=== PATIENT | male | born 1970 | race Caucasian/White ===

== ENCOUNTER 2017-02-09 12:50 | Emergency (ER) | payer MEDICAID ==
--- OUTSIDE RECORDS SUMMARY | 2017-02-09 13:09 | XMS REPORT | Clinical Summary ---
:1970 Author Organization [facility] [place] [address] Care Team Providers Name Role Phone Unavailable Primary Care Provider Unavailable Source Comments This disclosure is being made pursuant to the [employer] program and maynot contain all information available regarding this patient.[facility] Allergies No Known Allergies Current Medications Be aware that medications may not be up to date as of this document. Alwaysverify current medications with the patient. Prescription Sig. Disp. Refills Start Date End Date Status levothyroxine Take 175 mcg by Active (SYNTHROID, LEVOTHROID) mouth every 175 MCG tablet morning on an empty stomach. lisinopril Take 20 mg by Active (PRINIVIL,ZESTRIL) 20 mouth daily. MG tablet benztropine (COGENTIN) Take 1 tablet by 30 tablet 1 01/29/2017 Active 1 MG tablet mouth daily. divalproex ER (DEPAKOTE Take 2 tablets 60 tablet 1 01/29/2017 Active EXTENDED RELEASE) 500 by mouth MG 24 hr tablet nightly. lurasidone HCl (LATUDA) Take 1 tablet by 30 tablet 0 01/29/2017 Active 40 MG TABS tablet mouth daily with breakfast. traZODone (DESYREL) 100 Take 1 tablet by 30 tablet 1 01/29/2017 Active MG tablet mouth nightly. hydrOXYzine pamoate Take 1 capsule 90 capsule 1 01/29/2017 Active (VISTARIL) 50 MG by mouth 3 capsuleIndications:Anxi (three) times ety daily. Indications: Feeling Anxious Active Problems Problem Noted Date Bipolar I disorder, most recent episode depressed, severe without 01/29/2017 psychotic features (HCC) Polysubstance abuse 01/29/2017 Essential hypertension 01/25/2017 Hypothyroidism 01/25/2017 Alcohol-induced insomnia (HCC) 01/25/2017 Recurrent major depressive disorder (HCC) 01/25/2017 Social History Tobacco Use Types Packs/Day Years Used Date Never Assessed Sex Assigned at Date Recorded Not on file Last Filed Vital Signs Vital Sign Reading Time Taken Blood Pressure 128/82 01/29/2017 9:12 AM CDT Pulse 74 01/29/2017 9:12 AM CDT Temperature 37 C (98.6 F) 01/29/2017 9:12 AM CDT Respiratory Rate 16 01/29/2017 9:12 AM CDT Oxygen Saturation - - Inhaled Oxygen Concentration - - Weight 106.6 kg (235 lb) 01/25/2017 10:48 AM CDT Height 180.3 cm (5' 11") 01/25/2017 10:48 AM CDT Body Mass Index 32.78 01/25/2017 10:48 AM CDT Plan of Treatment Health Maintenance Due Date Last Done Comments Tetanus/Pertussis (1 - Tdap) 1990 INFLUENZA IMMUNIZATION (#1) 2017 Results Valproic acid level, total (01/28/2017 7:01 AM) Component Value Ref Range Valproic Acid Level 34.0(L) 50.0 - 100.0 mcg/mL Specimen Performing Laboratory [facility] CBC and differential (01/27/2017 6:57 AM)Only the most recent of2 resultswithin the time period is included. Component Value Ref Range WBC 6.98 4.80 - 10.80 th/mm3 RBC 5.38 4.70 - 6.10 mill/mm3 Hemoglobin 14.5 14.0 - 18.0 g/dL Hematocrit 44.0 42.0 - 52.0 % MCV 81.8(L) 83.0 - 97.0 fL MCH 27.0 27.0 - 31.0 pg MCHC 33.0 32.3 - 36.5 g/dL Platelets 222 130 - 450 th/mm3 RDW 15.8(H) 11.5 - 15.5 fL NRBC Absolute 0.00 0 th/mm3 MPV 10.4 9.4 - 12.3 fL Differential Type AUTOMATED DIFFERENTIAL Neutrophil % 56.8 43.0 - 65.0 % Neutrophils Absolute Count 3.97 1.5 - 7.5 th/mm3 Lymphocytes % 31.8 20.5 - 45.5 % Lymphocytes Absolute 2.22 1.1 - 3.0 th/mm3 Monocyte % 8.9 0.0 - 12.0 % Monos Absolute 0.62 0.0 - 0.8 th/mm3 Eosinophils Relative % 1.6 0.0 - 5.0 % Eosinophils Absolute Count 0.11 0.0 - 0.5 th/mm3 Basophils % 0.6 0.0 - 1.0 % Basophils Absolute 0.04 0.0 - 0.1 th/mm3 Immature Neutro % 0.3 0.0 - 0.7 % Immature Neutro 0.02 0.0 - 0.1 th/mm3 Specimen Performing Laboratory [facility] Basic metabolic panel (01/27/2017 6:57 AM)Only the most recent of2 resultswithin the time period is included. Component Value Ref Range Sodium 140 136 - 145 mmol/L Potassium 4.2 3.5 - 5.1 mmol/L Chloride 106 98 - 107 mmol/L CO2 26 21 - 32 mmol/L Glucose 84 70 - 100 mg/dL Comment: Reference values apply to fasting specimens only. Non-fasting results >140mg/dL should be evaluated by a physician. Note: New Reference Ranges BUN, Blood 15 7.0 - 22 mg/dL Creatinine, Serum 1.00 0.70 - 1.30 mg/dL Calcium 8.9 8.5 - 10.1 mg/dL Anion Gap 8 mmol/L BUN/Creatinine Ratio 15.0 Osmolality Calculated 279 mosm/Kg EGFR Non-/Georgian >60 >60 Comment: GFR REFERENCE RANGE: >60 mL/min/1.73m2 -- An eGFR of > than, or=to 60, may indicate normal renal function or mildly decreased GFR. EGFR /Georgian >60 >60 Comment: -- An eGFR of > than, or=to 60, may indicate normal renal function or mildly decreased GFR. Specimen Performing Laboratory [facility] TSH with Free T4 Reflex (01/26/2017 6:35 AM) Component Value Ref Range TSH 2.94 0.36 - 3.74 uIU/mL Specimen Performing Laboratory [facility] from Last 3 Months Insurance Payer Benefit Plan / Subscriber ID Type Phone Address Group [facility] [id number] Managed + [address] [facility] MEDICAID [facility] [address] [place] [address] MEDICAID [id number] [facility] [place]ICA[place] [id number] Managed + [address] [place] [id number] [place] [place] [id number] [facility] Self 1970 Home: [address] [phone] [address] [place] [place] [address]
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
[2017-02-09] MEDS ORDERED: KETOROLAC TROMETHAMINE 60 MG/2 ML VIAL IM ONE (13:14)
[2017-02-09 13:16] LABS: Hematocrit 39.7 % (42.0-52.0); Mean Cell Volume 82.2 fl (78-100); Mean Corpuscular Hemoglobin 26.9 pg (27-31); Mean Corpuscular Hgb Conc 32.7 g/dl (32-36); Mean Platelet Volume 9.5 fl (6.0-9.5); Neutrophil # 4.7 K/mm3 (1.3-6.0); Platelet Count 233 K/mm3 (150-450); Red Blood Count 4.83 M/mm3 (4.7-6.0); Red Cell Distribution Width 16.1 % (11.5-14.0); White Blood Count 7.5 K/mm3 (4.0-10.5)
[2017-02-09] MEDS ORDERED: ONDANSETRON 4 MG TAB.RAPDIS PO ONE (13:17)
[2017-02-09] MEDS ORDERED: MORPHINE SULFATE 4 MG/ML SYRG IM ONE (13:17)
[2017-02-09] MEDS ORDERED: MORPHINE SULFATE 4 MG/ML SYRG ONE (13:18)
[2017-02-09] MEDS ORDERED: ONDANSETRON 4 MG TAB.RAPDIS ONE (13:18)
[2017-02-09 13:28] LABS: Albumin * 3.4 gm/dl (3.4-5.0); Bilirubin, Total 0.5 mg/dL (0.0-1.1); Ca. Corrected For Albumin 8.8 mg/dL (8.4-10.2); Calcium * 8.6 mg/dL (7.9-10.9); Carbon Dioxide 24.1 mmol/L (24-32.6); Potassium 4.1 mmol/L (3.4-4.6); Total Protein 7.3 gm/dL (6.2-8.2)
[2017-02-09 13:52] LABS: Hemoglobin A1C 5.7 % (4.00-6.0)
[2017-02-09 14:34] VITALS: BP 138/97
[2017-02-09 14:44] LABS: Cocaine Ur Negative (NEGATIVE); Urine Barbiturate Negative (NEGATIVE); Urine Benzodiazepines Negative (NEGATIVE); Urine PCP Negative (NEGATIVE); Urine THC Negative (NEGATIVE)
[2017-02-09 14:45] LABS: Urine Opiates Positive (NEGATIVE)
[2017-02-09 14:50] LABS: Urine Appearance Clear; Urine Bilirubin Negative (NEGATIVE); Urine Blood 25 /ul (NEGATIVE); Urine Color Yellow; Urine Ketone Negative (NEGATIVE); Urine Protein Negative (NEGATIVE); Urine Urobilinogen Normal (NORMAL)
[2017-02-09 14:51] LABS: Urine Bacteria None Seen; Urine Nitrite Negative (NEGATIVE); Urine RBC None Seen /hpf (0-5); Urine WBC None Seen /hpf (0-5)
== END 2017-02-09 15:26 | disposition home or self-care (01) ==
LOC: ER 12:50
DX: S42.112A Displaced fracture of body of scapula, left shoulder, initial encounter for closed fracture (principal); S46.212A Strain of muscle, fascia and tendon of other parts of biceps, left arm, initial encounter; W86.8XXA Exposure to other electric current, initial encounter; Y93.9 Activity, unspecified; Y92.008 Other place in unspecified non-institutional (private) residence as the place of occurrence of the external cause; Y99.9 Unspecified external cause status